=== PATIENT | male | born 1980 | race Caucasian/White ===

== ENCOUNTER → 2016-04-25 | Outpatient (CLI) | payer OTHER | LOC: RAD 15:57 | PROVIDERS: ATTEND Physician Assistant | DX: M79.671 Pain in right foot (principal); V29.9XXA Motorcycle rider (driver) (passenger) injured in unspecified traffic accident, initial encounter ==

== ENCOUNTER → 2016-04-25 | Outpatient (CLI) | payer OTHER ==
[2016-04-25 16:31] VITALS: BP 114/68
== END ==
LOC: MHUC 15:31
PROVIDERS: ATTEND Physician Assistant
DX: S93.601A Unspecified sprain of right foot, initial encounter (principal); V86.59XA Driver of other special all-terrain or other off-road motor vehicle injured in nontraffic accident, initial encounter
CPT/HCPCS: 99213

== ENCOUNTER → 2016-05-03 | Outpatient (CLI) | payer OTHER ==
[2016-05-03 15:05] VITALS: BP 133/76
== END ==
LOC: MHUC 13:22
PROVIDERS: ATTEND Physician Assistant
DX: M79.671 Pain in right foot (principal)
CPT/HCPCS: 99213